=== PATIENT | female | born 1960 | race Caucasian/White ===

== ENCOUNTER → 2022-09-02 14:21 | Outpatient (BNVA) | payer OTHER, MEDICARE, SELFPAY | PROVIDERS: PCP Internal Medicine; Visit Provider Surgery | DX: K62.9 Disease of anus and rectum, unspecified (principal); Z80.3 Family history of malignant neoplasm of breast | CPT/HCPCS: 46600 ==

== ENCOUNTER 2022-10-18 06:43 | Day surgery (SDC) | payer OTHER, SELFPAY ==
--- NOTE | 2022-10-17 11:46 | HO.ANESPROP2 ---
Documented by User: Imani Ferris NP 10/17/22 11:47 HPI - Anesthesia Eval Consult details Narrative: 62yo F for Exam Under Anesthesia, Excision Anal Lesion PMFSH Active Problems Active Problems: All Active Problems (Updated 10/15/22 @ 13:30 by Melody Car, RN) Family history of breast cancer (Acute) Anal lesion (Acute) Past Medical History Medical History (Updated 10/15/22 @ 13:30 by Melody Car, RN) Anal lesion Endometriosis Family history of breast cancer HTN (hypertension) Hypercholesteremia Multiple sclerosis Panic attacks Polycystic ovarian syndrome PTSD (post-traumatic stress disorder) Family History Family History (Updated 09/02/22 @ 14:37 by LEROY Mac) Father Bladder cancer Paternal Aunt Breast cancer, Onset Age: 40 Paternal Grandmother Ovarian cancer Surgical History Surgical History (Updated 08/30/22 @ 14:58 by LEROY Mac) History of bilateral breast reduction surgery History of cholecystectomy History of hernia repair History of removal of ovarian cyst History of total abdominal hysterectomy and bilateral salpingo-oophorectomy Social History Social History (Updated 09/02/22 @ 14:38 by LEROY Mac) Alcohol intake: never Patient Tobacco Use Status: Former Tobacco user Meds Allergies Allergy/AdvReac Type Severity Reaction Status Date / Time No Known Allergies Allergy Verified 10/15/22 13:37 Home Medications Medication Instructions Recorded Confirmed Last Taken Type citalopram 40 mg tablet 80 mg PO DAILY 09/02/22 10/15/22 Unknown History dimethyl fumarate 240 mg 240 mg PO BID 09/02/22 10/15/22 Unknown History capsule,delayed release (Tecfidera) lamotrigine 25 mg tablet 50 mg PO DAILY 09/02/22 10/15/22 Unknown History lisinopril 10 mg tablet 10 mg PO DAILY 09/02/22 10/15/22 Unknown History lorazepam 0.5 mg tablet 1 mg PO DAILY 09/02/22 10/15/22 Unknown History metformin 500 mg tablet 500 mg PO BID 09/02/22 10/15/22 Unknown History oxybutynin chloride 5 mg tablet 10 mg PO BID 09/02/22 10/15/22 Unknown History simvastatin 40 mg tablet 40 mg PO QPM 09/02/22 10/15/22 Unknown History aspirin 81 mg tablet,delayed 81 mg PO DAILY 10/15/22 10/15/22 Unknown History release Exam Exam Date and Time: October 17, 2022 1146 Assessment and Plan Assessment Anesthesia Assessment: Chart Reviewed Documented by User: Yordan Blanchard MD 10/18/22 05:54 [facility] Past Medical History Medical History (Updated 10/15/22 @ 13:30 by Melody Car, JOSEPHINE) Anal lesion Endometriosis Family history of breast cancer HTN (hypertension) Hypercholesteremia Multiple sclerosis Panic attacks Polycystic ovarian syndrome PTSD (post-traumatic stress disorder) Family History Family History (Updated 09/02/22 @ 14:37 by LEROY Mac) Father Bladder cancer Paternal Aunt Breast cancer, Onset Age: 40 Paternal Grandmother Ovarian cancer Family history of problems with anesthesia: No Surgical History Surgical History (Updated 08/30/22 @ 14:58 by LEROY Mac) History of bilateral breast reduction surgery History of cholecystectomy History of hernia repair History of removal of ovarian cyst History of total abdominal hysterectomy and bilateral salpingo-oophorectomy History of Problems with Anesthesia: No Social History Social History (Updated 09/02/22 @ 14:38 by LEROY Mac) Alcohol intake: never Patient Tobacco Use Status: Former Tobacco user Meds Allergies Allergy/AdvReac Type Severity Reaction Status Date / Time No Known Allergies Allergy Verified 10/15/22 13:37 Home Medications Medication Instructions Recorded Confirmed Last Taken Type citalopram 40 mg tablet 80 mg PO DAILY 09/02/22 10/15/22 Unknown History dimethyl fumarate 240 mg 240 mg PO BID 09/02/22 10/15/22 Unknown History capsule,delayed release (Tecfidera) lamotrigine 25 mg tablet 50 mg PO DAILY 09/02/22 10/15/22 Unknown History lisinopril 10 mg tablet 10 mg PO DAILY 09/02/22 10/15/22 Unknown History lorazepam 0.5 mg tablet 1 mg PO DAILY 09/02/22 10/15/22 Unknown History metformin 500 mg tablet 500 mg PO BID 09/02/22 10/15/22 Unknown History oxybutynin chloride 5 mg tablet 10 mg PO BID 09/02/22 10/15/22 Unknown History simvastatin 40 mg tablet 40 mg PO QPM 09/02/22 10/15/22 Unknown History aspirin 81 mg tablet,delayed 81 mg PO DAILY 10/15/22 10/15/22 Unknown History release Exam Airway Mallampati Class: II TM Dist: >3cm Neck ROM: Full Heart: rrr Lungs: cta Assessment and Plan Assessment Anesthesia Assessment: Anesthesia Plan Discussed Final Anesthetic Review Family History of Problems with Anesthesia: No History of Problems with Anesthesia: No NPO: Yes ASA Class: II Patient Risk: Low Procedure Risk: Low Anesthetic Plan Anesthetic Plan: GA Disposition: Standard PACU
[2022-10-18 06:57] VITALS: BMI 34.4
[2022-10-18 07:11] VITALS: BP 114/71; PULSE 58; RESP 16; TEMP 36.1; O2SAT 96
[2022-10-18] MEDS: Lactated Ringers 1,000 ML 100 ML IVCONT (07:37)
--- NOTE | 2022-10-18 08:06 | MHC.SHP ---
Pre-Procedural Eval Section A Date of Service: 10/18/22 Section B Chief Complaint: Disease of anus and rectum, unspecified Details of Present Illness: has anal canal lesion, likely a polyp versus a sclerosed hemorrhoids Relevant Family History (Specify if Yes): No Relevant Social History: None Present Medications: see Short Stay Collaborative assessment Medical History: No relevant PMH History of Previous Operations: No relevant previous surgery Allergies: Allergies Allergy/AdvReac Type Severity Reaction Status Date / Time No Known Allergies Allergy Verified 10/18/22 06:57 Review of Systems Sugical H&P ROS: Negative: Constitution Exam Surgical H&P Exam: Normal: HEENT, Normal: Heart, Normal: Lungs, Normal: Extremities, Normal: Abdomen, Normal: Skin and Normal: Neurological Plan Diagnosis/Plan: Unchanged I have reviewed the history and physical and performed a pertinent physical examination on my patient. No changes have occurred unless specified. Time Spent With Patient Time: Total time managing care of this patient today ____ minutes.
--- NOTE | 2022-10-18 08:58 | P.OP_ITS ---
Operative Note Operative Note Date of Service: 10/18/22 Narrative: Preop diagnosis: Anal lesion Postop diagnosis: anal lesion, with note of a polypoid mass on a stalk, about 2.5 cm long just proximal to the anal verge Procedure: Exam under anesthesia, excision of anal lesion Surgeon: Martinez Cabello MD The patient is a 62 year female with note of an anal lesion at the verge. This was a 2.5 cm long polypoid mass on the left posterior aspect just proximal to the anal verge. This was soft and fleshy. She understood the technique of excision and was aware of the risks, benefits, and alternatives She was brought to the operating room placed in prone luisa-knife position under general anesthesia via endotracheal tube. The buttocks were retracted with wide tape laterally. The perianal area was prepped and draped in the usual sterile fashion. A surgical time-out was done. The patient received Cefotan 2 g IV preoperatively . Examination of the anal orifice revealed this polypoid mass on a stalk as described above. I inserted abuse Aragon retractor. I examined the anal canal circumferentially. There were no other lesions seen. She did have some non bulky hemorrhoidal columns, with a mix of internal external both the left and right side . I applied a Connell grasper on this polypoid mass to retract this. I made a [id number] stitch at just proximal to this and the anal canal. This was done using a chromic 3-0. I made an incision elliptically around the base of this polypoid mass using blade 15. And this was carried down through the full- thickness of the skin. I excised this lesion along this incision Metzenbaum scissors. I closed this incision with a running chromic 3-0 stitch with additional hemostatic [id number] sutures being placed . Once hemostasis was confirmed, I proceeded to then infiltrated the perianal area with Marcaine 0.5% for postop analgesia. The procedure was then completed . The patient tolerated procedure well. There were no immediate complications. Initial final counts of sponges and instruments were correct. Estimated blood loss about 10 cc. The patient was extubated without difficulty and transferred to the recovery room with stable vital signs.
[2022-10-18 09:25] VITALS: BP 128/75; PULSE 66; RESP 16; TEMP 36.6; O2SAT 97
[2022-10-18 09:30] VITALS: BP 134/75; PULSE 57; RESP 16; O2SAT 100
[2022-10-18 09:35] VITALS: BP 130/71; PULSE 57; RESP 16; O2SAT 98
[2022-10-18 09:40] VITALS: BP 132/77; PULSE 57; RESP 18; O2SAT 98
[2022-10-18 09:55] VITALS: BP 116/72; PULSE 59; RESP 18; O2SAT 98
== END 2022-10-18 10:30 | disposition home or self-care (01) ==
PROVIDERS: PCP Internal Medicine; Visit Provider Surgery
PROC: (CPT 46922; principal; 2022-10-18 08:20)
PROC: (CPT 46922; 2022-10-18 08:20)
DX: K62.89 Other specified diseases of anus and rectum (principal); I10 Essential (primary) hypertension; E78.00 Pure hypercholesterolemia, unspecified; G35 Multiple sclerosis; F43.10 Post-traumatic stress disorder, unspecified; F41.0 Panic disorder [episodic paroxysmal anxiety]; F48.8 Other specified nonpsychotic mental disorders; Z79.82 Long term (current) use of aspirin; Z79.84 Long term (current) use of oral hypoglycemic drugs; Z79.899 Other long term (current) drug therapy; Z90.710 Acquired absence of both cervix and uterus; Z90.49 Acquired absence of other specified parts of digestive tract; Z80.3 Family history of malignant neoplasm of breast; Z87.891 Personal history of nicotine dependence
CPT/HCPCS: 46922; 88305; J0131; J1100; J1885; J2405

== ENCOUNTER → 2022-10-31 10:22 | Outpatient (BNVA) | payer OTHER, SELFPAY | PROVIDERS: PCP Internal Medicine; Visit Provider Surgery | DX: Z13.89 Encounter for screening for other disorder (principal) ==

== ENCOUNTER 2024-11-30 09:14 | Outpatient (AMB) | payer SELFPAY ==
--- NOTE | 2024-11-30 09:16 | A.OFFPC_ITS ---
Vital Signs 11/30/24 09:17 Height 5 ft 2.2 in Weight 183 lb BMI 33.3 BP 139/82 Blood Pressure Location Rt brachial Respiration 14 Pulse 58 Pulse Source Pulse Oximeter Temp 97.8 F Temp Source Temporal Artery Scan Pulse Oximetry (%) 98 Oxygen Delivery Method Room Air Intake Visit Reasons: Follow up Circulation Supervisor Required: No Accompanied by: Self / Same As Patient Allergies No Known Allergies Allergy (Verified 11/30/24 09:38) Medication List - Last Reconciled 11/30/24 by Evelyn Lim PA-C aspirin 81 mg PO DAILY citalopram 80 mg PO DAILY dimethyl fumarate (Tecfidera) 240 mg PO BID ibuprofen 600 mg PO Q6H PRN lamotrigine 50 mg PO DAILY lisinopril 10 mg PO DAILY lorazepam 1 mg PO DAILY metformin 500 mg PO BID 90 days oxybutynin chloride 10 mg (2 x 5 mg) PO BID 90 days simvastatin 40 mg PO QPM Tobacco use date assessed: 11/30/24 Dental Screening Dental Screen Date: 11/30/24 Did you have a dental visit in the last 12 months?: Yes Did you have a dental problem in the last 6 months where you did not have access to dental care?: No Was dental information given to patient?: Patient has dentist HPI Follow up HPI Details The patient is a 64-year-old female presenting establish a new primary care provider due to Dr. French retired in July of 2024, her six-month follow-up and right shoulder pain persisting for several months. She attributes this right shoulder pain to activities done during water aerobics, specifically exercises involving weights underwater. The pain is exacerbated by lifting movements and impacts her daily activities. She denies experiencing any numbness, tingling, chest pain, or neck pain. The patient has a history of multiple falls last year but denies any recent falls that could connect to her current shoulder issue. Additionally, she reports difficulty with hand movement and possible tendinitis, suspecting Dupuytren?s Contracture based on a TV advertisement she saw. Patient also requesting to be started on weight loss medication Wegovy. Reports she has lost monitor amount of weight on her own with diet and exercise. Chronic conditions being managed include depression, anxiety, multiple sclerosis, hypertension, type 2 diabetes mellitus, and she is on a comprehensive list of medications. Social History - Exercises regularly through [employer], although has adjusted activities due to shoulder pain. - Former significant weight loss with No om program; currently concerned about regaining weight. - Resides with a who encourages physical activity despite pain. [facility] Medical History Class 1 obesity with body mass index (BMI) of 33.0 to 33.9 in adult Dupuytren's contracture of right hand Right shoulder pain History of mammogram (~11/06/22) Uterine cancer Establishing care with new doctor, encounter for Polycystic ovarian syndrome PTSD (post-traumatic stress disorder) Panic attacks Endometriosis Hypercholesteremia HTN (hypertension) Multiple sclerosis Family history of breast cancer Anal lesion Surgical History History of colonoscopy (~12/03/11) History of rectal polypectomy History of bilateral breast reduction surgery History of hernia repair History of cholecystectomy History of removal of ovarian cyst History of total abdominal hysterectomy and bilateral salpingo-oophorectomy Family History Father Bladder cancer Paternal Aunt Breast cancer, Onset Age: 40 Paternal Grandmother Ovarian cancer Social History Housing: House Alcohol intake: current Alcohol intake frequency: does not drink Patient Tobacco Use Status: Former Tobacco user Tobacco use type: Cigarette Substance Use Type: Marijuana service: No Current occupational status: disabled Cognitive needs: No Hearing needs: No Vision needs: Yes (rx glasses) Questionnaire PHQ-9 Over the last 2 weeks, how often have you been bothered by any of the following problems? 1. Little interest or pleasure in doing things: not at all 2. Feeling down, depressed, or hopeless: not at all 3. Trouble falling or staying asleep, or sleeping too much: not at all 4. Feeling tired or having little energy: not at all 5. Poor appetite or overeating: not at all 6. Feeling bad about yourself - or that you are a failure or have let yourself or your family down: not at all 7. Trouble concentrating on things, such as reading the newspaper or watching television: not at all 8. Moving or speaking so slowly that other people could have noticed. Or the opposite - being so fidgety or restless that you have been moving around a lot more than usual: not at all 9. Thoughts that you would be better off or of hurting yourself in some way: not at all Total score: 0 Depression Screening Interpretation: Negative Depression Screening Done: Yes 39098 - PHQ-9 Billing: Yes Source: Developed by Drs. Dagoberto Tariq, Bailey Espinosa, Mehrdad Giraldo and colleagues, with an educational uriel from [employer]. Thrive Questionnaire Date Thrive assessed: 11/30/24 I am a: Patient What is your living situation today?: I have a steady place to live Within the past 12 months, did the food you bought not last and you didn't have the money to get more?: Never true Within the past 12 months, did you worry whether your food would run out before you got money to buy more?: Never true Do you have trouble paying for medicines?: No Do you have trouble getting transportation to medical appointments?: No Do you have trouble paying your heating and electricity bill?: No Do you have trouble taking care of your child, family member or friend?: No Do you have trouble with day-to-day activities such as bathing, preparing meals, shopping, managing finances, etc.?: No Are you currently unemployed and looking for a job?: No Are you interested in more education?: No Please select the resources that you would like help with: None THRIVE Score: 0 AUDIT C Alcohol Use Questionnaire (AUDIT-C) 1. How often do you have a drink containing alcohol?: Never 3. How often do you have six or more drinks on one occasion?: Never Total Score: 0 Score Reviewed/Action Taken: No PARK-7 AMB Questionnaire PARK-7 Date PARK - 7 assessed: 11/30/24 Feeling nervous, anxious, or on edge: 0 = Not at all Not being able to stop or control worryin = Not at all Worrying too much about different things: 0 = Not at all Trouble relaxin = Not at all Being so restless that it is hard to sit still: 0 = Not at all Becoming easily annoyed or irritable: 0 = Not at all Feeling afraid as if something awful might happen: 0 = Not at all Total PRAK-7 score (0-4 normal; 5-9 mild; 10-14 moderate; 15-21 severe): 0 Source: Developed by Drs. Dagoberto Tariq, Bailey Espinosa, Mehrdad Giraldo and colleagues, with an educational uriel from [employer]. PARK-7 Assessment Billing PARK-7 Assessment Tool: PARK-7 Assessment 03224 Review of Systems Const Details: - Musculoskeletal: Reports right shoulder pain exacerbated by lifting; denies recent falls but reports multiple falls last year. Reports hand pain and difficulty opening the hand. - Cardiovascular: Reports recent high blood pressure reading; typically lower. - Neurological: Denies numbness or tingling in extremities. - General: Reports use of heating pad for pain relief. Physical exam (Primary Care) Vital Signs: Last Vital Signs Temp 97.8 F 11/30/24 09:17 Pulse 58 11/30/24 09:17 Resp 14 11/30/24 09:17 BP 142/78 H 11/30/24 09:17 Pulse Ox 98 11/30/24 09:17 Oxygen Delivery Method Room Air 11/30/24 09:17 Care Plan Goal for BP management: <140/90 at Goal BMI result Body Mass Index 33.3 BMI Assessment/Plan discussion: High BMI High, discussed plan: lifestyle, weight reduction, dietary, physical activity, alcohol moderation and other (Patient requesting Wegovy for weight loss) Tobacco/Smoking Status: Tobacco use Status Tobacco use date assessed 11/30/24 11/30/24 09:26 Patient Tobacco Use Status Former Tobacco user 11/30/24 09:26 Tobacco use type Cigarette 11/30/24 09:26 PHQ-9: PHQ-9 Score PHQ-9: Total score 0 11/30/24 09:26 Depression Screening Interpretation: Negative Thrive Assessment: Date of Thrive Assessment Date Thrive assessed 11/30/24 11/30/24 09:26 Const Other: Appearance: Alert. Oriented X3. No acute distress. Head: Normal external exam. Normocephalic. Atraumatic. Eyes: Pupils are equal, round, and reactive to light. Extraocular movements intact. Conjunctiva and sclera normal. Eyelids normal. Ears: External auditory canal normal. Tympanic membranes normal. Wax is present bilaterally. No cerumen impaction noted. Throat: Pharynx normal. Uvula midline. Moist mucous membranes. Neck: Normal inspection. Neck supple. Full range of motion. Cardiovascular: Normal heart rate and rhythm. Heart sound normal. No murmurs noted. Pulses normal throughout. Respiratory: No respiratory distress. Painless inspiration. Breath sounds normal. No wheezes/rales/rhonchi noted. Chest nontender. No accessory muscle usage noted or decreased air movement noted. Abdomen: Soft and nontender. No distention noted. No organomegaly noted. Back: No costovertebral angle tenderness. Full range of motion noted. Skin: Skin warm and dry. Normal skin color. Normal skin turgor. No rashes/lesions/lacerations noted. Extremities: Right shoulder pain noted with flexion, abduction, external and internal rotation, horizontal flexion, horizontal extension and scapula motion. Patient appears to have contraction of right hand could possibly be dupuytren tendonitis. Otherwise all other extremities exhibit normal range of motion nontender. No lower extremity edema or calf tenderness is noted. Neuro: Oriented X 3. No motor deficit. No sensory deficit. Reflexes normal. Results Reviewed Results Reviewed: - Labs: CBC, CMP, Lipid Panel, Thyroid Function Test, Vitamin B12, Vitamin D, Hemoglobin A1c ordered (Pending Results) - Imaging: X-ray of right shoulder and right hand ordered (Pending Results) Coding Level of Care Code New Pt Level 4 (16826) Complex EM visit Add On G2211 Diagnoses Establishing care with new doctor, encounter for Z. Right shoulder pain M25.511 Dupuytren's contracture of right hand M72.0 Class 1 obesity with body mass index (BMI) of 33.0 to 33.9 in adult E66.811; Z68.33 HTN (hypertension) I10 Panic attacks F41.0 PTSD (post-traumatic stress disorder) F43.10 Multiple sclerosis G35 Additional Codes PHQ-9 - 67090 - PHQ-9 Billing: Yes ([id number]) PARK-7 Assessment Billing - PARK-7 Assessment Tool: PARK-7 Assessment 65773 ([id number]) Time Spent (min) 45 Assessment & Plan Assessment & Plan (1) Establishing care with new doctor, encounter for: Code(s): Z76.89 - Persons encountering health services in other specified circumstances Category: Medical (2) Right shoulder pain: Code(s): M25.511 - Pain in right shoulder Category: Medical Plan: An X-ray of the right shoulder has been ordered to further evaluate. A referral for physical therapy is provided for rehabilitation and education on exercises. Advisement to avoid aggravating activities like heavy lifting. (3) Dupuytren's contracture of right hand: Code(s): M72.0 - Palmar fascial fibromatosis [Dupuytren] Category: Medical Plan: Referral for physical therapy to address tendinitis. Recommended analgesic use as needed, with guidance on avoiding activities that exacerbate pain. (4) Class 1 obesity with body mass index (BMI) of 33.0 to 33.9 in adult: Code(s): E66.811 - Obesity, class 1; Z68.33 - Body mass index [BMI] 33.0-33.9, adult Category: Medical Plan: Patient counselled on weight management practices. Attempting preauthorization for Wegovy with awareness of potential insurance challenges. Condition is chronic and stable continue to monitor. (5) HTN (hypertension): Code(s): I10 - Essential (primary) hypertension Category: Medical Plan: Monitoring of home blood pressure due to recent elevation. Potential future dosage adjustments discussed based on ongoing readings. Condition is chronic and stable continue to monitor. (6) Panic attacks: Code(s): F41.0 - Panic disorder [episodic paroxysmal anxiety] Category: Medical Plan: Continued management with citalopram; consistent psychiatric follow-up recommend ed. Condition is chronic and stable will continue to monitor. (7) PTSD (post-traumatic stress disorder): Code(s): F43.10 - Post-traumatic stress disorder, unspecified Category: Medical Plan: Continued management with citalopram; consistent psychiatric follow-up recommended. Condition is chronic and stable will continue to monitor. (8) Multiple sclerosis: Code(s): G35 - Multiple sclerosis Category: Medical Plan: Ongoing management with Tecfidera, patient is aware of medication costs. Contin ue monitoring and symptom management. Condition is chronic and stable will continue to monitor. Plan Plan Patient was informed and verbally consented to the use of an ambient scribe for clinic note documentation during this visit. 1. Right Shoulder Pain An X-ray of the right shoulder has been ordered to further evaluate. A referral for physical therapy is provided for rehabilitation and education on exercises. Advisement to avoid aggravating activities like heavy lifting. 2. Tendinitis Of Right Hand Referral for physical therapy to address tendinitis. Recommended analgesic use as needed, with guidance on avoiding activities that exacerbate pain. 3. Hypertension Monitoring of home blood pressure due to recent elevation. Potential future dosage adjustments discussed based on ongoing readings. 4. Depression And Anxiety Continued management with citalopram; consistent psychiatric follow-up recommended. 5. Multiple Sclerosis Ongoing management with Tecfidera, patient is aware of medication costs. Continue monitoring and symptom management. 6. Obesity Patient counselled on weight management practices. Attempting preauthorization for Wegovy with awareness of potential insurance challenges. I discussed the likely diagnosis of right shoulder pain, potentially due to tendonitis or bursitis. An X-ray has been ordered to assess the shoulder and hand. The patient was informed of the importance of adhering to physical therapy for both shoulder and hand to aid pain relief and function. We discussed the risks and benefits of medications and the possibility of prescribing Wegovy for weight management, contingent on insurance approval. Additionally, the need for several labs and a mammogram was addressed, and the processes for obtaining these were explained. The need for regular monitoring and follow-up for hypertension, depression, and multiple sclerosis was discussed in detail, emphasizing patient involvement in management decisions. Orders: Orders XR shoulder RT min 2V Today M25.511 - Pain in right shoulder Complete Blood Count Auto Diff Today Z00.00 - Encounter for general adult medical examination without abnormal findings C Reactive Protein Today Z00.00 - Encounter for general adult medical examination without abnormal findings MM screening mammo BI Today Z12.31 - Encounter for screening mammogram for malignant neoplasm of breast PT Evaluation and Treatment Today M25.511 - Pain in right shoulder, M72.0 - Palmar fascial fibromatosis [Dupuytren] Comprehensive [place]. Panel Fast Today Z00.00 - Encounter for general adult medical examination without abnormal findings Hemoglobin A1c Today Z00.00 - Encounter for general adult medical examination without abnormal findings Lipid Panel Today Z00.00 - Encounter for general adult medical examination without abnormal findings Liver Panel Today Z00.00 - Encounter for general adult medical examination without abnormal findings Magnesium Today Z00.00 - Encounter for general adult medical examination without abnormal findings Vitamin B12 and Folate Today Z00.00 - Encounter for general adult medical examination without abnormal findings Vitamin D 25-OH Total Today Z00.00 - Encounter for general adult medical examination without abnormal findings TSH reflex Free T4 Today Z00.00 - Encounter for general adult medical examination without abnormal findings XR hand RT min 3V Today M72.0 - Palmar fascial fibromatosis [Dupuytren] Referrals Cologuard Test Z12.11 - Encounter for screening for malignant neoplasm of colon, Z12.12 - Encounter for screening for malignant neoplasm of rectum Medications: New semaglutide (weight loss) (Weburkevagustina) administer weeks 1 through 4 of therapy 0.25 mg (0.5 mL) subcut QWEEK 2 mL 0RF E66.811 - Obesity, class 1, Z68.33 - Body mass index [BMI] 33.0-33.9, adult Patient Instructions: - Schedule the ordered x-rays for shoulder and hand when convenient. - Follow up with the physical therapy appointments once scheduled. - Monitor blood pressure regularly at home and record readings. - Continue with current medications unless otherwise advised. - Maintain weight management and exercise routines, adjusting as necessary to avoid pain. - Complete lab work and mammogram as discussed. - Contact the office if symptoms persist or worsen, or for any questions on insurance and prescription coverage.
[2024-11-30 09:17] VITALS: BP 139/82; PULSE 58; RESP 14; TEMP 36.6; O2SAT 98; BMI 33.3
== END 2024-11-30 09:57 | disposition home or self-care (01) ==
LOC: HO.HMCSH 09:14
PROVIDERS: PCP Internal Medicine; Visit Provider Physician Assistant Medical
DX: Z76.89 Persons encountering health services in other specified circumstances (principal); M25.511 Pain in right shoulder; M72.0 Palmar fascial fibromatosis [Dupuytren]; E66.811 Obesity, class 1; Z68.33 Body mass index [BMI] 33.0-33.9, adult; I10 Essential (primary) hypertension; F41.0 Panic disorder [episodic paroxysmal anxiety]; F43.10 Post-traumatic stress disorder, unspecified; G35 Multiple sclerosis

== ENCOUNTER → 2024-11-30 09:14 | Outpatient (BNVA) | payer SELFPAY | PROVIDERS: PCP Internal Medicine; Visit Provider Physician Assistant Medical | DX: M25.511 Pain in right shoulder (principal); M72.0 Palmar fascial fibromatosis [Dupuytren]; E66.811 Obesity, class 1; F32.A Depression, unspecified; I10 Essential (primary) hypertension; E11.9 Type 2 diabetes mellitus without complications; F41.0 Panic disorder [episodic paroxysmal anxiety]; F43.10 Post-traumatic stress disorder, unspecified; Z68.33 Body mass index [BMI] 33.0-33.9, adult; G35 Multiple sclerosis; Z79.899 Other long term (current) drug therapy | CPT/HCPCS: 96127; 99202 ==

== ENCOUNTER 2025-01-27 10:26 | Outpatient (AMB) | payer MEDICARE, SELFPAY ==
--- NOTE | 2025-01-27 10:50 | A.OFFVIS_ITS ---
Vital Signs 01/27/25 10:51 Height 5 ft 2 in Intake Visit Reasons: 6 mnts / MS Allergies No Known Allergies Allergy (Verified 01/27/25 10:51) Medication List - Last Reconciled 01/27/25 by Suzie Marroquin CNP aspirin 81 mg PO DAILY citalopram 80 mg PO DAILY dimethyl fumarate (Tecfidera) 240 mg PO BID ibuprofen 600 mg PO Q6H PRN lamotrigine 50 mg PO DAILY lisinopril-hydrochlorothiazide 20-12.5 mg (Zestoretic) 1 tab PO DAILY lorazepam 1 mg PO DAILY metformin 500 mg PO BID oxybutynin chloride 10 mg (2 x 5 mg) PO BID 90 days semaglutide (weight loss) (Wegovy) 0.25 mg (0.5 mL) subcut QWEEK simvastatin 40 mg PO QPM HPI Comments Details: 64-year-old woman with depression, anxiety, PTSD, and stable relapsing remitting MS for more than 20 years. Her symptoms first started in the late with transient numbness in the left arm and face for a few weeks followed the next year by numbness from the waist down and the next year with diplopia. MRI of the brain at that time showed multiple lesions in the spinal cord and brain. She was initially treated with Avonex, which she had reaction to. She was switched to Copaxone and then to Tecfidera in 2012. There are no side effects except for some flushing which she can control with aspirin. She noticed some decline in memory beginning around 2019. She has trouble focusing and gets fatigued easily. There are times where she gets intermittent diplopia on looking in certain directions and some days her balance is not as good. She has some urinary incontinence. She was doing okay. She was using Sativa tokes which helps improve her energy, motivation, and focus. She was using sleep aid with THC to help with sleep. She was still doing water aerobics a few times a week. No recent falls. She was under some stress recently as her car needed repairs. Her and her bought some land in [place] and were planning to build. They wanted to move there when he retired in 2027. [facility] Medical History (Updated 01/21/25 @ 07:53 by Lindy Cabello MA) Diabetes mellitus Class 1 obesity with body mass index (BMI) of 33.0 to 33.9 in adult Dupuytren's contracture of right hand Right shoulder pain History of mammogram (~11/06/22) Uterine cancer Establishing care with new doctor, encounter for Polycystic ovarian syndrome PTSD (post-traumatic stress disorder) Panic attacks Endometriosis Hypercholesteremia HTN (hypertension) Multiple sclerosis Family history of breast cancer Anal lesion Surgical History History of colonoscopy (~12/03/11) History of rectal polypectomy History of bilateral breast reduction surgery History of hernia repair History of cholecystectomy History of removal of ovarian cyst History of total abdominal hysterectomy and bilateral salpingo-oophorectomy Family History Father Bladder cancer Paternal Aunt Breast cancer, Onset Age: 40 Paternal Grandmother Ovarian cancer Social History Housing: House Alcohol intake: current Alcohol intake frequency: does not drink Patient Tobacco Use Status: Former Tobacco user Tobacco use type: Cigarette Substance Use Type: Marijuana service: No Current occupational status: disabled Cognitive needs: No Hearing needs: No Vision needs: Yes (rx glasses) Review of Systems Const Denies chills, Denies daytime sleepiness, Reports difficulty sleeping, Reports fatigue, Denies fever(s), Denies frequent falls, Reports headache(s), Denies increased appetite, Denies poor appetite, Denies snoring, Denies weakness, Denies weight gain and Denies weight loss Eyes Denies loss of vision ENT Denies vertigo, Denies dizziness, Reports headache(s) and Denies neck pain Card Denies chest pain at rest, Denies chest pain with activity, Denies syncope, Denies leg edema, Denies palpitations, Denies dyspnea and Denies dyspnea on exertion Resp Denies cough, Denies dyspnea, Denies dyspnea on exertion and Denies snoring GI Denies abdominal pain, Denies constipation, Denies heartburn, Denies diarrhea and Denies nausea Denies urinary frequency, Reports urinary incontinence and Reports urinary urgency Musc Denies abnormal gait, Denies back pain, Reports myalgias, Reports arthralgias, Denies neck pain, Denies numbness and Denies tingling Neuro Denies abnormal gait, Denies vertigo, Denies dizziness, Denies syncope, Denies frequent falls, Reports headache(s), Denies lack of coordination, Denies loss of vision, Reports memory loss, Denies numbness, Denies Other visual disturbances, Denies restless legs, Denies seizure-like activity, Denies tingling, Denies paresthesias, Denies tremor(s) and Denies weakness Psych Reports anxiety, Reports depression, Denies auditory hallucinations, Reports memory loss and Denies visual hallucinations Endo Reports fatigue and Denies palpitations Physical Exam Const Other: General Appearance:? normal, in no acute distress. Heart:? S1, S2 normal, no murmurs. Lungs:? clear anteriorly and posteriorly. Musculoskeletal:? normal. Extremities:? no edema. Psych:? alert, oriented, cognitive function intact, cooperative with exam. Neuro Other: Abnormal Neurological Findings:?Bilateral partial internuclear ophthalmoplegia. Hyperreflexia of lower extremities 3+ knee jerks and 2+ ankle jerks. Minimal truncal ataxia on tandem walking Mental Status: alert and oriented X 3. Normal attention, orientation, memory, and affect. Cranial Nerves: Pupils are equal, round, and reactive to light. External ocular muscles are intact. Bilateral LUCITA. Visual muñoz are full, no ptosis. Face is symmetrical, no facial weakness or droop. Facial sensations are normal. Tongue protrudes in midline. Palate elevates symmetrically. Shoulder shrugging is normal Motor Examination: As above, otherwise normal muscle tone, bulk and strength. No atrophy or fasciculations. No drift of the extended upper extremities. Plantars are flexor. Sensory Exam: Normal light touch, temperature, pinprick, vibration, and joint- position sensations. Rhomberg sign is absent. Coordination: No ataxia. No titubation. Gstres-[id number]-[id number], nvta-zfqv-utid test, and rapid alternating movements were normal. Gait Exam: Within normal limits. Cerebellar Signs: [id number]-[id number] and [id number]-nh-zowo is normal. No dysdiadochokinesia. Extrapyramidal System: No tremor, rigidity with normal facial expressions. No bradykinesia. No bradyphrenia. Normal arm swing and posture. No propulsion or retropulsion. Speech: Normal. No dysphasia or dysarthria. Assessment & Plan Assessment & Plan (1) Multiple sclerosis: Code(s): G35 - Multiple sclerosis Category: Medical Plan: Continue dimethyl fumarate 240mg 1 capsule twice a day Coding Level of Care Code Est Pt Level 3 (28090) Diagnoses Multiple sclerosis G35
== END 2025-01-27 11:12 | disposition home or self-care (01) ==
LOC: HO.HSM 10:26
PROVIDERS: PCP Physician Assistant Medical; Visit Provider Registered Nurse
DX: G35 Multiple sclerosis (principal)
CPT/HCPCS: 99213

== ENCOUNTER → 2025-01-27 10:26 | Outpatient (BNVA) | payer MEDICARE, SELFPAY | PROVIDERS: PCP Physician Assistant Medical; Visit Provider Registered Nurse | DX: G35 Multiple sclerosis (principal) | CPT/HCPCS: 99212 ==

== ENCOUNTER 2025-04-20 08:58 | Outpatient (REF) | payer MEDICARE, SELFPAY | END 2025-04-20 08:59 | disposition home or self-care (01) | LOC: HO.MAMMO 08:58 | PROVIDERS: PCP Internal Medicine; Visit Provider Physician Assistant Medical | DX: Z12.31 Encounter for screening mammogram for malignant neoplasm of breast (principal) | CPT/HCPCS: 77063; 77067 ==

== ENCOUNTER → 2025-04-20 09:15 | Outpatient (BNV) | payer MEDICARE, SELFPAY | PROVIDERS: PCP Internal Medicine; Visit Provider Internal Medicine | DX: Z12.31 Encounter for screening mammogram for malignant neoplasm of breast (principal) | CPT/HCPCS: 77063; 77067 ==